=== PATIENT | female | born 1985 | race Caucasian/White ===

== ENCOUNTER 2019-05-18 02:13 | Observation (INO) ==
[2019-05-18] MEDS ORDERED: Isovue-370 500 ML BOTTLE IVP ONE (02:41)
[2019-05-18 03:04] LABS: Hemoglobin 14.8 g/dL (11.5-15.4); Mean Corpuscular HGB Conc 32.9 g/dL (31.6-35.5); Mean Corpuscular Hemoglobin 29.9 pg (28.0-33.3); Mean Corpuscular Volume 90.9 fL (83.0-100.0); Mean Platelet Volume 11.1 fL (9.4-12.4); Platelet Count 188 K/mcL (140-400); Red Blood Count 4.95 M/mcL (3.82-4.97); Red Cell Distribution Width 11.8 % (11.5-14.5); White Blood Count 5.2 K/mcL (4.3-11.1)
[2019-05-18 03:11] LABS: INR 0.9; Prothrombin Time 10.5 Seconds (9.4-12.1)
[2019-05-18 03:14] LABS: Activated Partial Thrombo Time 19.1 Seconds (26.0-36.0)
[2019-05-18 03:29] LABS: BUN/Creatinine Ratio 14 (6-26); Blood Urea Nitrogen 10 mg/dL (6-20); Calcium 9.8 mg/dL (8.6-10.3); Carbon Dioxide 23 mEq/L (23-29); Chloride 104 mEq/L (98-107); Glucose 87 mg/dL (70-105); Osmolality,Calculated 278 (280-300); Potassium 3.8 mEq/L (3.5-5.1); Sodium 135 mEq/L (136-145); eGFR For African Americans > 60 (> 60); eGFR For Non-African Americans > 60 (> 60)
[2019-05-18 03:30] LABS: Troponin I < 0.03 ng/mL (< 0.04)
[2019-05-18] MEDS ORDERED: *HR* LORazepam 2 MG/ML VIAL IVP ONE ×2 (03:39→10:57)
[2019-05-18] MEDS ORDERED: Naloxone 0.4 MG/ML INJ IVP PRN (05:54)
[2019-05-18] MEDS ORDERED: hydrOXYzine pamoate 25 MG CAPSULE PO SCH (06:24)
[2019-05-18] MEDS ORDERED: predniSONE 20 MG TABLET PO SCH (09:30)
[2019-05-18] MEDS ORDERED: Acyclovir 200 MG CAPSULE PO SCH (09:30)
[2019-05-18 11:51] VITALS: BP 127/69
== END 2019-05-18 13:27 | disposition home or self-care (01) ==
LOC: 3BNU 02:13 → EMEROOARM 02:13 → SUATTDRO 05:00 → 3BNU 05:21
PROVIDERS: ADMIT Internal Medicine; ATTEND Internal Medicine